=== PATIENT | male | born 1975 | race Caucasian/White ===

== ENCOUNTER 2017-05-22 03:49 | Inpatient (IN) | payer BC ==
[~2017-05-22] VITALS: Ht 188 cm; Wt 128.0 kg
[2017-05-22] VITALS (23 sets, daily range): BP systolic 125–162; BP diastolic 61–107; PULSE 63–94; RESP 12–20; TEMP 98.3; Ht 188 cm; Wt 128.0 kg
[2017-05-22] MEDS ORDERED: morphine 4 MG/ML VIAL IV STA (04:18)
[2017-05-22] MEDS ORDERED: ONDANSETRON 4 MG INJ IV STA (04:18)
[2017-05-22] MEDS ORDERED: SOD CHLORIDE 0.9% 500 ML IV STA (04:18)
[2017-05-22 04:49] LABS: BASOPHIL # 0.1 10^3/ul (0.0-0.1); BASOPHILS % 0.5 % (0.0-2.0); EOSINOPHILS # 0.2 10^3/ul (0.0-0.5); HEMATOCRIT 47.8 % (42.0-52.0); HEMOGLOBIN 15.3 g/dl (14.0-18.0); LYMPHOCYTES # 3.1 10^3/ul (0.8-2.9); LYMPHOCYTES % 33.8 % (15.0-51.0); MEAN CORPUSCULAR VOLUME 90.5 fl (82.0-101.0); MEAN PLATELET VOLUME 10.8 fl (7.4-10.4); MONOCYTE # 0.8 10^3/ul (0.3-0.9); MONOCYTES % 8.7 % (0.0-11.0); NEUTROPHILS % 54.9 % (39.0-77.0); PLATELET COUNT 208 10^3/UL (140-415); RED BLOOD COUNT 5.28 10^6/ul (4.70-6.10); RED CELL DISTRIBUTION WIDTH 14.2 % (11.5-14.5); WHITE BLOOD COUNT 9.1 10^3/ul (4.8-10.8)
[2017-05-22 05:23] LABS: ALBUMIN 4.5 g/dl (3.3-4.9); ALBUMIN/GLOBULIN RATIO 1.36; BILIRUBIN,INDIRECT 0.6 mg/dl (0-1.1); BILIRUBIN,TOTAL 0.6 mg/dl (0.2-1.3); CALCIUM 9.1 mg/dl (8.4-10.2); CREATININE 0.82 mg/dl (0.61-1.24); POTASSIUM 4.1 mmol/L (3.5-5.1); TOTAL PROTEIN 7.8 g/dl (6.1-8.1)
--- NOTE | 2017-05-22 06:27 | ERA ---
ER Documentation Chief Complaint Date/Time DATE: 05/22/17 TIME: 06:25 Chief Complaint c/o RLQ pain x 2 days. Left AMA from [facility]. Dx'd with cristofer. HPI Patient is a 41-year-old male who presents with gradual onset, constant, moderate, sharp right lower quadrant pain for 24 hours. He denies vomiting, but reports nausea. He denies hematuria or dysuria, denies fever. He went to [facility] and had a CT scan which was consistent with appendicitis. [facility] advised to transfer, but the patient did not like the transfer accepting facility and signed out AMA. ROS All systems reviewed and are negative except as per history of present illness. Medications Home Meds No Active Prescriptions or Reported Meds Allergies Allergies: Coded Allergies: No Known Allergy (Unverified , 05/22/17) PMhx/Soc Past medical history: None Past surgical history: None Social history: Smokes cigarettes, denies alcohol FmHx Family History: No coronary disease, No diabetes Physical Exam Vitals Vital Signs Date Time Temp Pulse Resp B/P Pulse Ox O2 Delivery O2 Flow Rate FiO2 05/22/17 07:00 98.6 69 20 131/85 98 05/22/17 03:53 98.8 78 18 120/82 98 Physical Exam Const: Alert, no acute distress Head: Atraumatic Eyes: Normal Conjunctiva, No pallor, no icterus ENT: Normal External Ears, Nose and Mouth. Tacky mucous membranes Neck: Full range of motion..~ No meningismus. Resp: Clear to auscultation bilaterally, No wheezes, no rales Cardio: Regular rate and rhythm, no murmurs Abd: Soft, non distended. Tenderness in the right lower quadrant with involuntary guarding, positive Rovsing sign Skin: No petechiae or rashes Back: No midline or flank tenderness Ext: No cyanosis, or edema Neur: Awake and alert Psych: Normal Mood and Affect Result Diagram: 05/22/1741905/22/17419 Results 24 hrs Laboratory Tests Test 05/22/17 04:20 White Blood Count 9.110^3/ul Red Blood Count 5.2810^6/ul Hemoglobin 15.3g/dl Hematocrit 47.8% Mean Corpuscular Volume 90.5fl Mean Corpuscular Hemoglobin 29.0pg Mean Corpuscular Hemoglobin Concent 32.0g/dl Red Cell Distribution Width 14.2% Platelet Count 19307^3/UL Mean Platelet Volume 10.8fl Neutrophils % 54.9% Lymphocytes % 33.8% Monocytes % 8.7% Eosinophils % 2.0% Basophils % 0.5% Nucleated Red Blood Cells % 0.0/100WBC Neutrophils # 5.010^3/ul Lymphocytes # 3.110^3/ul Monocytes # 0.810^3/ul Eosinophils # 0.210^3/ul Basophils # 0.110^3/ul Nucleated Red Blood Cells # 0.010^3/ul Prothrombin Time 12.8Sec Prothrombin Time Ratio 1.0 INR International Normalized Ratio 0.96 Sodium Level 142mmol/L Potassium Level 4.1mmol/L Chloride Level 108mmol/L Carbon Dioxide Level 23mmol/L Anion Gap 15 Blood Urea Nitrogen 13mg/dl Creatinine 0.82mg/dl Glucose Level 89mg/dl Calcium Level 9.1mg/dl Total Bilirubin 0.6mg/dl Direct Bilirubin 0.00mg/dl Indirect Bilirubin 0.6mg/dl Aspartate Amino Transf (AST/SGOT) 31IU/L Alanine Aminotransferase (ALT/SGPT) 42IU/L Alkaline Phosphatase 49IU/L Total Protein 7.8g/dl Albumin 4.5g/dl Globulin 3.30g/dl Albumin/Globulin Ratio 1.36 Lipase 65U/L Current Medications Medications (Trade) Dose Ordered Sig/Iza Route PRN Reason Start Time Stop Time Status Last Admin Dose Admin Sodium Chloride (NS) 500 ml @ 500 mls/hr Q1H STAT IV 05/22/17 04:18 05/22/17 05:17 DC 05/22/17 04:28 Morphine Sulfate (morphine) 4 mg ONCE STAT IV 05/22/17 04:18 05/22/17 04:19 DC Ondansetron HCl 4 mg 4 mg ONCE STAT IV 05/22/17 04:18 05/22/17 04:19 DC Sodium Chloride (NS) 500 ml @ 500 mls/hr Q1H ONCE IV 05/22/17 06:30 05/22/17 07:29 DC 05/22/17 07:08 Metoclopramide HCl (Reglan) 10 mg ONCE ONCE IV 05/22/17 07:00 05/22/17 07:01 DC 05/22/17 07:08 Procedures/MDM MDM: Patient is a 41-year-old male who presents with 24 hours of right lower quadrant pain. He was seen at [facility] and had a CT scan demonstrating acute appendicitis. There is no sign of perforation. He was given a dose of antibiotics at [facility], but signed out AMA in order to come to [facility]. I confirmed the CT findings by obtaining radiologist report. I discussed with the case with the surgeon on-call, Dr. Choi, who will see the patient and schedule him for appendectomy later today. The patient will be admitted to Dr. Flores. He has no comorbidities, has stable vital signs, and is well-appearing. He does have signs of localized guarding on his abdominal exam but no gross peritonitis, no fever, no leukocytosis. Departure Diagnosis: Primary Impression: Appendicitis Qualified Code: K35.3 - Acute appendicitis with localized peritonitis Condition: Stable ROWENA VASQUEZ MD May 22, 2017 06:27
[2017-05-22] MEDS ORDERED: SOD CHLORIDE 0.9% 500 ML IV ONE (06:30)
[2017-05-22 06:52] LABS: INR 0.96; PROTIME 12.8 Sec (12.2-14.2)
[2017-05-22] MEDS ORDERED: METOCLOPRAMIDE 10 MG INJ IV ONE (07:00)
[2017-05-22] MEDS ORDERED: ROCURONIUM 50 MG INJ ONE (07:00)
[2017-05-22] MEDS ORDERED: ONDANSETRON 4 MG INJ IV PRN ×3 (08:00→19:00)
[2017-05-22] MEDS ORDERED: ACETAMINOPHEN 325 MG TAB PO PRN ×2 (08:00→19:00)
[2017-05-22] MEDS: D5W-0.45 NACL + KCL 20 MEQ 1,000 ML IV SCH ×2 (12:00→23:17)
--- NOTE | 2017-05-22 12:04 | HP ---
Date/Time of Note Date/Time of Note DATE: 05/22/17 TIME: 11:55 Assessment/Plan VTE Prophylaxis VTE Prophylaxis Intervention: SCD's Lines/Catheters IV Catheter Type (from Rust): Saline Lock Urinary Cath still in place: No Assessment/Plan Assessment/Plan - Acute appendicitis, Dr. Medrano is following in general surgery consultation, and for laparoscopic appendectomy today. Continue antibiotics and IV fluids and morphine as needed for pain and Zofran as needed for nausea. Keep patient n.p.o. -Obesity with BMI 36.2 -Ongoing tobacco use, patient refused nicotine patch. Further recommendations based on clinical course. Plan of care discussed with Dr. Flores HPI/ROS Admit Date/Time Admit Date/Time May 22, 2017 at 07:55 Hx of Present Illness The patient is a 41-year-old male who presented to emergency room with complaints of gradual onset and sharp right lower quadrant pain for the last 2 days. Patient originally went to [facility] and underwent CT of the abdomen which revealed acute nonruptured appendicitis with dilated, fluid- filled and edematous appendix. According to the patient the patient received antibiotics and pain medication in the emergency room and patient was about to be transferred to [facility] in [place]. The patient refused to be transferred to [place] due to location far away from home and left [facility] AGAINST MEDICAL ADVICE and presented to [facility] emergency room. Patient denies having any chronic medical conditions, does not take any medications at home. Patient denies any fever chills denies any emesis however complains of mild nausea. Patient is admitted for further evaluation and management. ROS 12 point review of system is negative except what mentioned in HPI PMH/Family/Social Past Medical History Patient denies having any chronic conditions Past Surgical History Past Surgical Hx: no surgical history Family History Significant Family History: no pertinent family hx Social History Alcohol Use: none Smoking Status: Current every day smoker (1 approximately one half pack a day) Drug Use: none Exam/Review of Systems Vital Signs Vitals Vital Signs Date Time Temp Pulse Resp B/P Pulse Ox O2 Delivery O2 Flow Rate FiO2 05/22/17 09:00 98.3 72 18 136/82 98 Room Air Exam Constitutional: alert, oriented Head: normocephalic Neck: supple Respiratory: clear to auscultation Cardiovascular: nl pulses Gastrointestinal: soft, tender (Epigastric and right lower quadrant tenderness) Extremities: normal pulses Neurological: PIPELINE SUPERINTENDENT DIVISION II-XII intact Skin: nl turgor Labs Result Diagram: 05/22/1741905/22/17 042 Medications Medications Current Medications Influenza Virus Vaccine (Fluzone) 0.5 ml ONCE ONCE IM* ; Start 05/22/17 at 15: 00; Stop 05/22/17 at 15:01 THUY HALEY May 22, 2017 12:04
[2017-05-22] MEDS ORDERED: INFLUENZA VIRUS VACCINE 0.5 ML SYG IM* ONE (15:00)
--- NOTE | 2017-05-22 15:44 | RADRPT ---
PROCEDURE: XR Chest. CLINICAL INDICATION: Preop. Acute appendicitis. TECHNIQUE: Single AP portable chest. COMPARISON: No prior Chest x-ray FINDINGS: The cardiomediastinal silhouette is within normal limits of size. The lungs are clear without pleur al effusion or focal consolidation. No pneumothorax. The osseous structures and soft tissues are unr emarkable. IMPRESSION: 1. No evidence for active cardiopulmonary disease. RPTAT:AAJJ Physician Erica Date Time Electronically viewed and signed by Physician Erica on 05/22/2017 15:44 ALIDA/
[2017-05-22] MEDS ORDERED: LIDOCAINE 2%/EPI 30 ML INJ ONE (18:00)
[2017-05-22] MEDS: PIPER-TAZO 3.375 GM IV (PMX) 100 ML IVPB SCH (18:00)
[2017-05-22] MEDS ORDERED: BUPIVACAINE 0.25% (MPF) 30 ML INJ ONE (18:00)
[2017-05-22] MEDS ORDERED: LIDOCAINE 2% (SDV) 5 ML INJ ONE (18:24)
[2017-05-22] MEDS ORDERED: PROPOFOL 20 ML ONE (18:24)
[2017-05-22] MEDS ORDERED: SUCCINYLCHOLINE CHLORIDE 100 MG/5 ML SYG IV ONE (18:24)
[2017-05-22] MEDS ORDERED: MIDAZOLAM 1 MG/ML 2 ML INJ ONE (18:24)
[2017-05-22] MEDS ORDERED: FENTAnyl 50 MCG/ML VIAL ONE (18:24)
[2017-05-22] MEDS ORDERED: hydrALAzine 20 MG INJ IV PRN (18:30)
[2017-05-22] MEDS ORDERED: PROCHLORPERAZINE 10 MG INJ IV PRN (18:30)
[2017-05-22] MEDS ORDERED: DIPHENHYDRAMINE 50 MG INJ IV PRN (18:30)
[2017-05-22] MEDS ORDERED: FENTAnyl 50 MCG/ML VIAL IV PRN (18:30)
[2017-05-22] MEDS ORDERED: OXYCODONE/ACETAMINOPHEN (5/325) TAB PO PRN ×2 (18:30)
[2017-05-22] MEDS ORDERED: LABETALOL HCL 20MG INJ IV PRN (18:30)
[2017-05-22] MEDS ORDERED: MEPERIDINE 25 MG INJ IV PRN (18:30)
[2017-05-22] MEDS ORDERED: HYDROmorphONE (0.2 MG/ML) 10ML SYG IV PRN ×2 (18:30)
[2017-05-22] MEDS ORDERED: D5-NS + KCL 20 MEQ 1,000 ML IV SCH (18:36)
--- NOTE | 2017-05-22 18:36 | CONS ---
Date/Time of Note Date/Time of Note DATE: 05/22/17 TIME: 18:34 Assessment/Plan Assessment/Plan Additional Assessment/Plan Acute appendicitis Discussed laparoscopic, possible open, appendectomy. All benefits, risks, alternatives discussed in detail. All questions answered. The patient likes to proceed Consultation Date/Type/Reason Admit Date/Time May 22, 2017 at 07:55 Date of Consultation: May 22, 2017 Hx of Present Illness The patient is a 41-year-old male who developed acute onset of abdominal pain to the right lower quadrant. He presented to [facility] where he was diagnosed with acute appendicitis. Due to insurance reasons he was transferred here. Patient has nausea but no emesis. He denies fevers chills or night sweats Past Medical History Medical History: no pertinent history Past Surgical History Past Surgical Hx: no surgical history Family History Significant Family History: no pertinent family hx Social History Alcohol Use: none Smoking Status: Current every day smoker (1 approximately one half pack a day) Drug Use: none Exam/Review of Systems Vital Signs Vitals Vital Signs Date Time Temp Pulse Resp B/P Pulse Ox O2 Delivery O2 Flow Rate FiO2 05/22/17 16:05 98.7 63 16 125/71 97 Room Air Exam Constitutional: alert, oriented, well developed Respiratory: clear to auscultation Cardiovascular: regular rate and rhythm Gastrointestinal: soft, tender (To right lower quadrant) Musculoskeletal: nl extremities to inspection Extremities: normal pulses Results Result Diagram: 05/22/17 0420 05/22/17 0420 Results 24 hrs Laboratory Tests Test 05/22/17 04:20 White Blood Count 9.1 Red Blood Count 5.28 Hemoglobin 15.3 Hematocrit 47.8 Mean Corpuscular Volume 90.5 Mean Corpuscular Hemoglobin 29.0 Mean Corpuscular Hemoglobin Concent 32.0 Red Cell Distribution Width 14.2 Platelet Count 208 Mean Platelet Volume 10.8 H Neutrophils % 54.9 Lymphocytes % 33.8 Monocytes % 8.7 Eosinophils % 2.0 Basophils % 0.5 Nucleated Red Blood Cells % 0.0 Neutrophils # 5.0 Lymphocytes # 3.1 H Monocytes # 0.8 Eosinophils # 0.2 Basophils # 0.1 Nucleated Red Blood Cells # 0.0 Prothrombin Time 12.8 Prothrombin Time Ratio 1.0 INR International Normalized Ratio 0.96 Sodium Level 142 Potassium Level 4.1 Chloride Level 108 Carbon Dioxide Level 23 Anion Gap 15 Blood Urea Nitrogen 13 Creatinine 0.82 Glucose Level 89 Calcium Level 9.1 Total Bilirubin 0.6 Direct Bilirubin 0.00 Indirect Bilirubin 0.6 Aspartate Amino Transf (AST/SGOT) 31 Alanine Aminotransferase (ALT/SGPT) 42 Alkaline Phosphatase 49 Total Protein 7.8 Albumin 4.5 Globulin 3.30 H Albumin/Globulin Ratio 1.36 Lipase 65 Medications Medications Current Medications Piperacillin Sod/ Tazobactam Sod 100 ml @ 25 mls/hr TID@ IVPB ; Start 05/22/17 at 18:00 Potassium Chloride/Dextrose/ Sod Cl (D5-1/2ns + KCl 20 Meq) 1,000 ml @ 100 mls/ hr Q10H IV Last administered on 05/22/17t 12:00; Admin Dose 100 MLS/HR; Start 05/22/17 at 12:00 MANSOOR TANG MD May 22, 2017 18:36
[2017-05-22] MEDS ORDERED: ONDANSETRON 4 MG INJ ONE (18:55)
[2017-05-22] MEDS ORDERED: METOCLOPRAMIDE 10 MG INJ ONE (18:55)
[2017-05-22] MEDS ORDERED: SUGAMMADEX SODIUM 200 MG/2 ML VIAL IV ONE (18:57)
[2017-05-22] MEDS ORDERED: HYDROCODONE/APAP (5/325) TAB PO PRN (19:00)
[2017-05-22] MEDS ORDERED: morphine 2 MG INJ IV PRN (19:00)
[2017-05-22] MEDS ORDERED: HYDROmorphONE 2 MG/ML SYG ONE (19:06)
--- NOTE | 2017-05-22 19:17 | SIPON ---
Date/Time of Note Date/Time of Note DATE: 05/22/17 TIME: 19:16 Operative Report Preoperative Diagnosis acute appendicitis Postoperative Diagnosis same Operation/Procedure Performed Lap appey Surgeon see signature line evaluation assistant none Anesthesia: general Estimated blood loss: 10 - 50 ml's Transfusion Required none Specimen appendix Grafts/Implants none Complications none MANSOOR TANG MD May 22, 2017 19:17
--- NOTE | 2017-05-22 19:24 | OPR ---
Date/Time of Note Date/Time of Note DATE: 05/22/17 TIME: 19:20 Operative Report Procedure Date: May 22, 2017 Preoperative Diagnosis Acute appendicitis Postoperative Diagnosis Same Operation/Procedure Performed Laparoscopic appendectomy Surgeon see signature line Big Machine Consultant None Anesthesia Type: general Anesthesiologist: FRIDA DURHAM MD Estimated Blood Loss: 10 - 50 ml's Transfusion none Specimen Appendix Grafts/Implants none Complications none Indications Patient is a 41 year male with acute appendicitis. I discussed laparoscopic, possible open appendectomy with the patient. All benefits, risks, alternatives discussed in detail. All questions answered. The patient asked to proceed thank you Procedure Description The patient was brought to operative room placed supine on the table. After preop antibiotics and SCDs were applied. The patient was intubated and the abdomen was cleaned prepped draped sterile fashion. All incisions were infiltrated with half percent Marcaine. A 5 mm incision was made in the umbilicus. Using a 5 relapse continued trocar, the abdomen under direct vision insufflated him as marked CO2. Following trochars and placed direct vision: The right lower quadrant 5 mm iand a left lower quadrant 12mm. There was some serosanguineous fluid in the abdomen. Emanating form the cecum was the appendix. It was not really consistent with acute appendicitis. It was not ruptured or perforated. I made a rent in the base of the appendiceal mesentery I then divided the cecum at the base of the appendix with a 35 mm and the linear cutter white load. I then was able to elevate the appendix. The mesentery was then divided with a 35 mm Endo linear cutter white load. The appendix was then placed in Endo Catch bag and removed from the 12 mm trocar site. I then copiously irrigated the right upper quadrant right lower quadrant and pelvis to left was clear. I visualized my staple lines are hemostatic. I then visualized the pelvis. In the right side of the pelvis there was a ischemic cyst which was emanating from the right fallopian tube. The uterus and both ovaries were normal. I called the labor wrist nitric acid concentrator operator into the OR. She told me this was a necrotic right paratubal cyst and the tube needed to be resected. I was able to place a 35 mm Endo linear cutter white load across the right salpinx. The salpinx and cyst were thus divided. I placed the cyst and salpinx in Endo Catch bag. I visualized my staple line was hemostatic. I then remove the cyst and right salpinx from the 12 mm trocar site. At this point, I desufflated the abdomen and removed all trochars. The fascia of the 12 mm trocar site was closed with 0 Vicryl. Skin incisions were closed with 4 Monocryl, Mastisol, and Steri-Strips. The patient procedure well was extubated in the OR and transferred to recovery in stable condition. MANSOOR TANG MD May 22, 2017 19:24
[2017-05-22] MEDS: ACETAMINOPHEN 1000MG/100ML IV 100 ML IVPB PRN (23:17)
[2017-05-23] MEDS ORDERED: PIPER-TAZO 3.375 GM IV (PMX) 100 ML IVPB SCH
[2017-05-23 00:01] VITALS: BP 128/63; PULSE 61; RESP 17
[2017-05-23] MEDS: PIPER-TAZO 3.375 GM IV (PMX) 100 ML IVPB SCH ×3 (03:08→17:28)
[2017-05-23] MEDS: KETOROLAC 30 MG INJ IV PRN ×3 (03:31→20:45)
[2017-05-23 05:22] LABS: BASOPHILS % 0.3 % (0.0-2.0); EOSINOPHILS # 0.1 10^3/ul (0.0-0.5); EOSINOPHILS % 1.4 % (0.0-7.0); HEMATOCRIT 44.5 % (42.0-52.0); HEMOGLOBIN 14.4 g/dl (14.0-18.0); LYMPHOCYTES # 2.1 10^3/ul (0.8-2.9); LYMPHOCYTES % 24.7 % (15.0-51.0); MEAN CORPUSCULAR HEMOGLOBIN 29.6 pg (29.0-33.0); MEAN CORPUSCULAR HGB CONC 32.4 g/dl (32.0-37.0); MEAN CORPUSCULAR VOLUME 91.6 fl (82.0-101.0); MEAN PLATELET VOLUME 10.8 fl (7.4-10.4); MONOCYTE # 0.7 10^3/ul (0.3-0.9); MONOCYTES % 8.3 % (0.0-11.0); NEUTROPHIL # 5.6 10^3/ul (1.6-7.5); NEUTROPHILS % 65.1 % (39.0-77.0); PLATELET COUNT 180 10^3/UL (140-415); RED BLOOD COUNT 4.86 10^6/ul (4.70-6.10); RED CELL DISTRIBUTION WIDTH 13.9 % (11.5-14.5); WHITE BLOOD COUNT 8.7 10^3/ul (4.8-10.8)
[2017-05-23 06:12] LABS: CALCIUM 8.6 mg/dl (8.4-10.2); CREATININE 0.91 mg/dl (0.61-1.24)
[2017-05-23] MEDS: ENOXAPARIN 40 MG/0.4 ML SYG SC SCH (06:32)
[2017-05-23 07:16] VITALS: BP 123/77; RESP 19
[2017-05-23] MEDS: D5W-0.45 NACL + KCL 20 MEQ 1,000 ML IV SCH (08:00)
[2017-05-23] MEDS: ACETAMINOPHEN 1000MG/100ML IV 100 ML IVPB PRN (09:00)
[2017-05-23 14:20] VITALS: BP 126/77; RESP 18
[2017-05-23] MEDS: PANTOPRAZOLE (EC) 40 MG TAB PO SCH (16:59)
[2017-05-23] MEDS ORDERED: SENNA TAB PO PRN (17:30)
[2017-05-23 19:50] VITALS: BP 128/73; RESP 18
--- NOTE | 2017-05-23 19:54 | PN ---
Date/Time of Note Date/Time of Note DATE: 05/23/17 TIME: 19:53 Assessment/Plan Lines/Catheters IV Catheter Type (from Nrs): Peripheral IV Mcnair in Place (from Nrs): No Assessment/Plan Chief Complaint/Hosp Course Postop day 1 status post lap appendectomy Okay for discharge tomorrow Problems: Subjective 24 Hr Interval Summary Constitutional: other (Some pain to left lower quadrant, had bowel movement and passing flatus) Exam/Review of Systems Vital Signs Vitals Vital Signs Date Time Temp Pulse Resp B/P Pulse Ox O2 Delivery O2 Flow Rate FiO2 05/23/17 14:20 97.8 69 18 126/77 96 05/23/17 00:01 Room Air 05/22/17 22:15 2.0 Intake and Output 05/22/17 05/22/17 05/23/17 15:00 23:00 07:00 Intake Total 650 ml 2470 ml Output Total 25 ml 1400 ml Balance 625 ml 1070 ml Exam Constitutional: alert, oriented, well developed Respiratory: clear to auscultation Cardiovascular: regular rate and rhythm Gastrointestinal: soft Results Result Diagram: 05/23/17 0438 05/23/17 0438 MANSOOR TANG MD May 23, 2017 19:54
--- NOTE | 2017-05-23 22:42 | PN ---
Date/Time of Note Date/Time of Note DATE: 05/23/17 TIME: 22:41 Assessment/Plan Lines/Catheters IV Catheter Type (from Nrs): Saline Lock Urinary Cath still in place: No Assessment/Plan Assessment/Plan - Acute appendicitis, Dr. Medrano is following in general surgery consultation, and for laparoscopic appendectomy today. Continue antibiotics and IV fluids and morphine as needed for pain and Zofran as needed for nausea. Keep patient n.p.o. -Obesity with BMI 36.2 -Ongoing tobacco use, patient refused nicotine patch. Further recommendations based on clinical course. Plan of care discussed with Dr. Flores Exam/Review of Systems Vital Signs Vitals Vital Signs Date Time Temp Pulse Resp B/P Pulse Ox O2 Delivery O2 Flow Rate FiO2 05/23/17 19:50 99.0 72 18 128/73 96 05/23/17 00:01 Room Air 05/22/17 22:15 2.0 Intake and Output 05/22/17 05/22/17 05/23/17 15:00 23:00 07:00 Intake Total 650 ml 2470 ml Output Total 25 ml 1400 ml Balance 625 ml 1070 ml Results Result Diagram: 05/23/17 0438 05/23/17 0438 Results 24 hrs Laboratory Tests Test 05/23/17 04:38 White Blood Count 8.7 Red Blood Count 4.86 Hemoglobin 14.4 Hematocrit 44.5 Mean Corpuscular Volume 91.6 Mean Corpuscular Hemoglobin 29.6 Mean Corpuscular Hemoglobin Concent 32.4 Red Cell Distribution Width 13.9 Platelet Count 180 Mean Platelet Volume 10.8 H Neutrophils % 65.1 Lymphocytes % 24.7 Monocytes % 8.3 Eosinophils % 1.4 Basophils % 0.3 Nucleated Red Blood Cells % 0.0 Neutrophils # 5.6 Lymphocytes # 2.1 Monocytes # 0.7 Eosinophils # 0.1 Basophils # 0.0 Nucleated Red Blood Cells # 0.0 Sodium Level 142 Potassium Level 4.0 Chloride Level 106 Carbon Dioxide Level 27 Anion Gap 13 Blood Urea Nitrogen 8 Creatinine 0.91 Glucose Level 95 Calcium Level 8.6 Medications Medications Current Medications Piperacillin Sod/ Tazobactam Sod (Zosyn 3.375gm/ 100 ml (Pmx)) 100 ml @ 25 mls/ hr TID@02,,18 IVPB Last administered on 05/23/17t 17:28; Admin Dose 25 MLS/ HR; Start 05/22/17 at 18:00 Ondansetron HCl (Zofran Inj) 4 mg Q6H PRN IV NAUSEA AND/OR VOMITING; Start at 19:00 Acetaminophen (Tylenol Tab) 650 mg Q6H PRN PO PAIN LEVEL 1-3 OR FEVER; Start 05/22/17 at 19:00 Morphine Sulfate (morphine) 2 mg Q2H PRN IV PAIN LEVEL 8-10; Start 05/22/17 at 19:00 Acetaminophen/ Hydrocodone Bitart ([place] (5/325)) 1 tab Q6H PRN PO PAIN LEVEL 4 -7; Start 05/22/17 at 19:00 Enoxaparin Sodium 40 mg 40 mg DAILY@07 SC Last administered on 05/23/17 06:32 ; Admin Dose 40 MG; Start 05/23/17 at 07:00 Acetaminophen (Ofirmev 1000mg/ 100ml Iv) 100 ml @ 400 mls/hr Q8H PRN IVPB PAIN Last administered on 05/23/17 09:00; Admin Dose 400 MLS/HR; Start at 22:00 Ketorolac Tromethamine (Toradol) 30 mg Q6H PRN IV PAIN Last administered on 20:45; Admin Dose 30 MG; Start 05/22/17 at 22:00; Stop 05/25/17 at 21: 59 Pantoprazole (Protonix Tab) 40 mg DAILY@06 PO Last administered on 05/23/17 16:59; Admin Dose 40 MG; Start 05/23/17 at 17:00 Ibuprofen (Motrin) 600 mg Q6H PRN PO PAIN; Start 05/25/17 at 22:00 Senna (Senokot) 2 tab BID PRN PO CONSTIPATION Last administered on 05/23/17 17:28; Admin Dose 2 TAB; Start 05/23/17 at 17:30 ELDA ELLIS May 23, 2017 22:42
[2017-05-24] MEDS: ACETAMINOPHEN 1000MG/100ML IV 100 ML IVPB PRN (00:17)
[2017-05-24] MEDS: PIPER-TAZO 3.375 GM IV (PMX) 100 ML IVPB SCH ×3 (01:26→18:00)
[2017-05-24] MEDS: KETOROLAC 30 MG INJ IV PRN ×4 (02:37→19:42)
[2017-05-24] MEDS: PANTOPRAZOLE (EC) 40 MG TAB PO SCH (06:16)
[2017-05-24] MEDS: ENOXAPARIN 40 MG/0.4 ML SYG SC SCH (06:21)
[2017-05-24 08:09] VITALS: BP 115/66; RESP 18
--- NOTE | 2017-05-24 13:36 | OPR ---
Date/Time of Note Date/Time of Note DATE: 05/24/17 TIME: 13:34 Operative Report Procedure Date: May 22, 2017 Preoperative Diagnosis acute appendicitis Postoperative Diagnosis Same Operation/Procedure Performed Laparoscopic appendectomy Surgeon see signature line Web Marketing Strategist none Anesthesia Type: general Anesthesiologist: FRIDA DURHAM MD Estimated Blood Loss: minimal Transfusion none Specimen appendix Grafts/Implants none Complications none Pt Condition Post Procedure: stable Disposition: PACU Indications Patient is a 41 year male with acute appendicitis. I discussed laparoscopic, possible open appendectomy with the patient. All benefits, risks, alternatives discussed in detail. All questions answered. The patient asked to proceed thank you Procedure Description The patient was brought to operative room placed supine on the table. After preop antibiotics and SCDs were applied. The patient was intubated and the abdomen was cleaned prepped draped sterile fashion. All incisions were infiltrated with half percent Marcaine. A 5 mm incision was made in the umbilicus. Using a 5 relapse continued trocar, the abdomen under direct vision insufflated him as marked CO2. Following trochars and placed direct vision: The right lower quadrant 5 mm iand a left lower quadrant 12mm. There was some serosanguineous fluid in the abdomen. Emanating form the cecum was the appendix. It was not really consistent with acute appendicitis. It was not ruptured or perforated. I made a rent in the base of the appendiceal mesentery I then divided the cecum at the base of the appendix with a 35 mm and the linear cutter white load. I then was able to elevate the appendix. The mesentery was then divided with a 35 mm Endo linear cutter white load. The appendix was then placed in Endo Catch bag and removed from the 12 mm trocar site. I then copiously irrigated the right upper quadrant right lower quadrant and pelvis until effluent was clear. I visualized my staple lines. They were hemostatic. At this point, I desufflated the abdomen and removed all trochars. The fascia of the 12 mm trocar site was closed with 0 Vicryl. Skin incisions were closed with 4 Monocryl, Mastisol, and Steri-Strips. The patient procedure well was extubated in the OR and transferred to recovery in stable condition. MANSOOR TANG MD May 24, 2017 13:36
[2017-05-24 14:00] VITALS: BP 122/74; RESP 18
[2017-05-24] MEDS ORDERED: ACET1TAB40 PO (18:01)
[2017-05-25] MEDS ORDERED: IBUPROFEN 600 MG TAB PO PRN (22:00)
--- NOTE | 2017-05-26 16:23 | DS ---
Date/Time of Note Date/Time of Note DATE: 05/26/17 TIME: 16:20 Discharge Summary Admission/Discharge Info Admit Date/Time May 22, 2017 at 07:55 Discharge Date/Time May 24, 2017 at 19:55 Patient Condition: Stable Hx of Present Illness The patient is a 41-year-old male who presented to emergency room with complaints of gradual onset and sharp right lower quadrant pain for the last 2 days. Patient originally went to [facility] and underwent CT of the abdomen which revealed acute nonruptured appendicitis with dilated, fluid- filled and edematous appendix. According to the patient the patient received antibiotics and pain medication in the emergency room and patient was about to be transferred to [facility] in [place]. The patient refused to be transferred to [place] due to location far away from home and left [facility] AGAINST MEDICAL ADVICE and presented to [facility] emergency room. Patient denies having any chronic medical conditions, does not take any medications at home. Patient denies any fever chills denies any emesis however complains of mild nausea. Patient is admitted for further evaluation and management. Hospital Course - Acute appendicitis,status post lap appendectomy 05/[address] Medrano. Continue antibiotics and IV fluids and morphine as needed for pain and Zofran as needed for nausea. Pt recovered well, able to tolerate diet, +BS, + flatus, ambulatory. -Obesity with BMI 36.2 -Ongoing tobacco use, patient refused nicotine patch. Cessation is strongly advised. Home Meds Active Scripts Acetaminophen with Codeine (Acetaminophen-Cod #3 Tablet) 1 Each Tablet, 1 TAB PO Q6H, #30 TAB Prov:THUY HALEY 05/24/17 Follow-up Plan f/up with Dr Choi in 1-2 weeks. Primary Care Provider Not On Staff Doctor Time spent on discharge: > 30 minutes Pending Labs Laboratory Tests Test 05/26/17 12:03 Lab Scanned Report REFERENCE [id number] THUY HALEY May 26, 2017 16:23
== END 2017-05-24 19:55 | disposition home or self-care (01) | DRG 340 ==
LOC: E/R 03:49 → MS3 07:55 → MS1 10:49
PROVIDERS: ADMIT Internal Medicine; ATTEND Internal Medicine
PROC: 0DTJ4ZZ Resection of Appendix, Percutaneous Endoscopic Approach (ICD-10-PCS; principal; 2017-05-22 18:00)
DX: K35.3 Acute appendicitis with localized peritonitis (principal); E66.9 Obesity, unspecified; Z68.36 Body mass index [BMI] 36.0-36.9, adult; Z72.0 Tobacco use
CPT/HCPCS: 71010; 80048; 80053; 83690; 85025; 85610; 88304; 90686; 96374; J0131; J1170; J1650; J1885; J2175; J2250; J2270; J2405; J2543; J2765; J3010; J3480; J7040

== ENCOUNTER 2017-06-30 19:23 | Emergency (ER) | payer BC ==
[~2017-06-30] VITALS: Ht 182.9 cm; Wt 122.7 kg
[~2017-06-30 19:23] MED LIST: ACET1TAB40 PO
[2017-06-30 19:32] VITALS: Ht 182.9 cm; Wt 122.7 kg
[2017-06-30] MEDS ORDERED: morphine 4 MG/ML VIAL IV STA (19:45)
[2017-06-30] MEDS ORDERED: LIDOCAINE/MYLANTA 40 ML BTL PO STA (19:45)
[2017-06-30] MEDS ORDERED: ONDANSETRON 4 MG INJ IV STA (19:45)
--- NOTE | 2017-06-30 19:52 | ERD ---
ER Documentation Chief Complaint Chief Complaint RUQ abd pain since 4 hours ago HPI This 41-year-old male patient presents to emergency department for evaluation right upper quadrant pain. Right, radiating across abdomen to epigastrium, 2 back. Patient reports nausea without vomiting. Patient also has had his appendix removed 4 weeks ago. Patient reports today's pain is greater than 10/ 10 on pain scale. Patient denies chest pain, shortness of breath, palpitations , or dizziness. Pt reports of gradual onset and sharp right lower quadrant pain with similar symptoms early last month. Patient was seen at [facility] had CT of the abdomen which revealed acute nonruptured appendicitis with dilated, fluid-filled and edematous appendix. Patient ended up at [facility] for appendectomy. ROS All systems reviewed and are negative except as per history of present illness. Medications Home Meds Active Scripts Acetaminophen with Codeine (Acetaminophen-Cod #3 Tablet) 1 Each Tablet, 1 TAB PO Q6H, #30 TAB Prov:THUY HALEY 05/24/17 Allergies Allergies: Coded Allergies: No Known Allergy (Unverified , 05/22/17) PMhx/Soc History of Surgery: No Anesthesia Reaction: No Hx Neurological Disorder: No Hx Respiratory Disorders: No Hx Cardiac Disorders: No Hx Psychiatric Problems: No Hx Miscellaneous Medical Probl: No Hx Alcohol Use: Yes (OOC) Hx Substance Use: No Hx Tobacco Use: Yes Smoking Status: Current every day smoker Physical Exam Vitals Vital Signs Date Time Temp Pulse Resp B/P Pulse Ox O2 Delivery O2 Flow Rate FiO2 06/30/17 21:30 98.0 89 20 144/85 98 Room Air 06/30/17 19:32 98.3 82 20 135/85 100 Vitals stable, triage notes reviewed Physical Exam Const: This obese, well-appearing, well-hydrated, 41-year-old male patient obvious discomfort, no acute distress ENT: Normal External Ears, Nose and Mouth. Resp: Respirations even and unlabored, clear to auscultation bilaterally diminished bases Cardio: S1-S2, no S3-S4 regular rate and rhythm, no murmurs Abd: Abdomen obese, soft, epigastric tenderness, right upper quadrant tenderness, no lower quadrant tenderness or CVA tenderness. Neur: Awake and alert Psych: Normal Mood and Affect Result Diagram: 06/30/17194706/30/171947 Results 24 hrs Laboratory Tests Test 06/30/17 19:45 06/30/17 19:48 Urine Color LIZZ Urine Clarity CLOUDY Urine pH 5.0 Urine Specific [place] 1.031 Urine Ketones TRACEmg/dL Urine Nitrite NEGATIVEmg/dL Urine Bilirubin NEGATIVEmg/dL Urine Urobilinogen 2+mg/dL Urine Leukocyte Esterase NEGATIVELeu/ul Urine Microscopic RBC 0/HPF Urine Microscopic WBC 4/HPF Urine Squamous Epithelial Cells FEW/HPF Urine Calcium Oxalate Crystals MANY/HPF Urine Mucus MANY/HPF Urine Hemoglobin NEGATIVEmg/dL Urine Glucose NEGATIVEmg/dL Urine Total Protein 1+mg/dl White Blood Count 9.610^3/ul Red Blood Count 5.6710^6/ul Hemoglobin 16.6g/dl Hematocrit 49.7% Mean Corpuscular Volume 87.7fl Mean Corpuscular Hemoglobin 29.3pg Mean Corpuscular Hemoglobin Concent 33.4g/dl Red Cell Distribution Width 13.3% Platelet Count 02520^3/UL Mean Platelet Volume 10.7fl Neutrophils % 67.1% Lymphocytes % 24.0% Monocytes % 6.6% Eosinophils % 1.6% Basophils % 0.5% Nucleated Red Blood Cells % 0.0/100WBC Neutrophils # 6.410^3/ul Lymphocytes # 2.310^3/ul Monocytes # 0.610^3/ul Eosinophils # 0.210^3/ul Basophils # 0.110^3/ul Nucleated Red Blood Cells # 0.010^3/ul Sodium Level 145mmol/L Potassium Level 4.0mmol/L Chloride Level 107mmol/L Carbon Dioxide Level 27mmol/L Anion Gap 15 Blood Urea Nitrogen 18mg/dl Creatinine 0.98mg/dl Glucose Level 106mg/dl Calcium Level 10.7mg/dl Total Bilirubin 0.5mg/dl Direct Bilirubin 0.00mg/dl Indirect Bilirubin 0.5mg/dl Aspartate Amino Transf (AST/SGOT) 37IU/L Alanine Aminotransferase (ALT/SGPT) 47IU/L Alkaline Phosphatase 53IU/L Troponin I < 0.012ng/ml Total Protein 8.1g/dl Albumin 4.4g/dl Globulin 3.70g/dl Albumin/Globulin Ratio 1.18 Lipase 82U/L Current Medications Medications (Trade) Dose Ordered Sig/Iza Route PRN Reason Start Time Stop Time Status Last Admin Dose Admin Ondansetron HCl (Zofran Inj) 4 mg ONCE STAT IV 06/30/17 19:45 06/30/17 19:49 DC 06/30/17 20:06 Miscellaneous Medication 40 ml 40 ml ONCE STAT PO 06/30/17 19:45 06/30/17 19:49 DC 06/30/17 20:06 Lactated Ringer's (Lr) 500 ml @ 500 mls/hr Q1H ONCE IV 06/30/17 20:00 06/30/17 20:59 DC 06/30/17 20:07 Morphine Sulfate (morphine) 4 mg ONCE STAT IV 06/30/17 19:45 06/30/17 20:18 DC Acetaminophen/ Codeine Phosphate (Tylenol No.3) 1 tab ONCE PO 06/30/17 20:25 06/30/17 20:26 DC 06/30/17 20:34 Ketorolac Tromethamine 15 mg 15 mg ONCE STAT IV 06/30/17 22:13 06/30/17 22:21 DC 06/30/17 22:36 Acetaminophen (Ofirmev 1000mg/ 100ml Iv) 100 ml @ 400 mls/hr ONCE ONCE IVPB 06/30/17 22:30 06/30/17 22:44 DC 06/30/17 22:36 Interpretation text CBC shows no evidence of hemorrhage or infection Chemistry shows no evidence of significant electrolyte abnormalities or renal insufficiency Liver function tests shows no evidence of acute biliary or hepatic dysfunction Lipase shows no evidence of acute pancreatitis Pertinent negative for evidence of recent ischemia Procedures/MDM EKG read by Dr. Dee Rate/Rhythm: Regular rate and rhythm at a rate of 76 bpm Intervals: Normal Impression: No evidence of ischemia or arrhythmia PROCEDURE: XR Abdomen. CLINICAL INDICATION: Abdomen pain. TECHNIQUE: Two views. AP supine and AP erect. COMPARISON: None. FINDINGS: There is no free air. The bowel gas pattern is normal. There is no evidence of obstruction. Surgical clips are present in the right lower quadrant. There are no abnormal calcifications overlying the urinary tracts. The osseus structures are unremarkable. IMPRESSION: 1. Prior right lower quadrant abdomen surgery. 2. Otherwise unremarkable abdomen radiographs. Electronically viewed and signed by .Rafael Wolff MD, on 06/30/2017 21:41 PROCEDURE: Right upper quadrant ultrasound. CLINICAL INDICATION: Abdominal pain. TECHNIQUE: Multiple real-time longitudinal and transverse images of the right upper quadrant of the abdomen were acquired utilizing a curved array transducer. Images were reviewed on a high-resolution PACS workstation. COMPARISON: None. FINDINGS: The pancreas is not visualized due to overlying bowel gas. The liver is normal in echogenicity. The liver measures 18.5 cm in length. No hepatic lesion or intrahepatic biliary ductal dilatation is seen. The portal vein is patent with hepatopetal flow. No gallstones or sludge are seen within the gallbladder lumen. The gallbladder wall is not thickened. There is no pericholecystic fluid. The common bile duct measures 4 mm in diameter, not dilated. The right kidney measures 12.4 cm in length. Renal echogenicity is normal. There is no hydronephrosis, urinary calculus, or renal mass. The visualized portions of the aorta and IVC are unremarkable. IMPRESSION: 1. Normal appearance of the gallbladder and bile ducts. 2. Mild hepatomegaly. 3. The pancreas is not visualized. Electronically viewed and signed by .Alejo Sherman MD, on 06/30/2017 21:28 This 41-year-old male patient presents to emergency room with intermittent abdominal pain, patient reports with the abdominal pain hits it is over 10 out of 10 on pain scale, patient reports pain is active at this time, patient has also recently been hospitalized for appendicitis status post appendectomy. Emergency room course includes her lactated Ringer's, Tylenol 3 with codeine, Toradol 15 mg intramuscularly, and IV Tylenol. Treatment of pain symptoms. The patient's chart review;, patient's last CAT scan from May 21 prior to appendectomy as read by radiologist impression acute nonruptured appendicitis associated with trace pelvic ascites simple appearing left renal cyst diverticulosis of the colon degenerative changes of the spine and of the hips. I do not feel it was necessary to repeat CAT scan today, ordered limited ultrasound in upright flatplate of abdomen. Right upper quadrant ultrasound is read by radiologist impression normal appearance of the gallbladder in the bile ducts, mild hepatomegaly, the pancreas is not visualized. Abdominal x-rays read by radiologist prior right lower quadrant abdominal surgery, abdominal x- ray is read by supervising physician Dr. Dee positive for retained stool in the transverse colon, otherwise unremarkable x-ray, serology is unremarkable for infection, hemorrhage, electrolyte imbalance, hepatitis, pancreatitis, renal insufficiency. Urinalysis is negative for evidence of infection. All information reviewed with Dr. Dee, plan of care discussed, patient to start MiraLAX, Dulcolax suppository, and follow-up with primary care physician. Return to emergency department for pain not improving with treatment. Patient is stable with no new complaints during ER course, clinically there is no current evidence to suggest meningitis, sepsis, acute abdomen, acute coronary syndromes, pulmonary embolism or any other emergent condition appearing to require further evaluation or hospitalization. I feel the patient is stable for discharge at this time. I have discussed results, examination findings, the treatment plan with the patient and family present prior to discharge. Indications for emergent reevaluation, side effects of medication were also discussed. All questions were answered. Patient verbalizes understanding and agrees with plan of care. Departure Diagnosis: Primary Impression: Abdominal pain Abdominal location: right upper quadrant Qualified Code: R10.11 - Right upper quadrant abdominal pain Condition: Good Patient Instructions: Abdominal Pain, Constipation (Adult), Eating a High Fiber Diet Additional Instructions: Thank you for for coming to [facility] for your care today. Please ask your nurse or provider if you have questions about your care today and do not leave until all your questions have been answered. Please use any medications given as directed and follow-up with your doctor (or the doctor you were referred to) in the next 2-3 days. If you do not have a primary care doctor you may follow up at the [facility] [place] (listed below). You may also use motrin and tylenol as needed for fever and/or pain unless instructed otherwise by your provider or nurse. Indications for more urgent follow-up have been discussed, but you may return to the Emergency Department at ANY time for any worrisome or worsening symptoms. If you have abdominal pain, please know that no test or exam you received is perfect and you should follow up within 8 hours for continued pain. If you had any imaging studies today, such as an X-Ray or CT Scan, these studies will be reviewed later by a radiologist. You will be called if there are important findings that were not identified today, so make sure the contact information you provided at registration is correct. If you received any narcotic pain control medicine today, such as Vicodin, Morphine or Dilaudid, your coordination and judgment may be affected for a number of hours. Please do not drive or operate heavy machinery, and you may want someone to assist you at home. If you were given a prescription for narcotic medication, be aware that it is very addictive- use sparingly and only if necessary. ABHAY SHINE Jun 30, 2017 19:52
[2017-06-30] MEDS ORDERED: LACTATED RINGER'S 500 ML IV ONE (20:00)
[2017-06-30] MEDS ORDERED: ACETAMINOPHEN/CODEINE #3 TAB PO SCH (20:25)
[2017-06-30 20:33] LABS: BASOPHIL # 0.1 10^3/ul (0.0-0.1); BASOPHILS % 0.5 % (0.0-2.0); EOSINOPHILS # 0.2 10^3/ul (0.0-0.5); EOSINOPHILS % 1.6 % (0.0-7.0); HEMATOCRIT 49.7 % (42.0-52.0); HEMOGLOBIN 16.6 g/dl (14.0-18.0); LYMPHOCYTES # 2.3 10^3/ul (0.8-2.9); MEAN CORPUSCULAR HEMOGLOBIN 29.3 pg (29.0-33.0); MEAN CORPUSCULAR HGB CONC 33.4 g/dl (32.0-37.0); MEAN CORPUSCULAR VOLUME 87.7 fl (82.0-101.0); MEAN PLATELET VOLUME 10.7 fl (7.4-10.4); MONOCYTE # 0.6 10^3/ul (0.3-0.9); MONOCYTES % 6.6 % (0.0-11.0); NEUTROPHIL # 6.4 10^3/ul (1.6-7.5); NEUTROPHILS % 67.1 % (39.0-77.0); PLATELET COUNT 221 10^3/UL (140-415); RED BLOOD COUNT 5.67 10^6/ul (4.70-6.10); RED CELL DISTRIBUTION WIDTH 13.3 % (11.5-14.5); WHITE BLOOD COUNT 9.6 10^3/ul (4.8-10.8)
[2017-06-30 20:40] LABS: ADD UMIC YES; UR ASCORBIC ACID NEGATIVE (NEGATIVE); UR BILIRUBIN (Dip) NEGATIVE (NEGATIVE); UR BLOOD (Dip) NEGATIVE (NEGATIVE); UR CLARITY CLOUDY (CLEAR); UR COLOR AMBER (YELLOW); UR GLUCOSE (Dip) NEGATIVE (NEGATIVE); UR KETONES (Dip) TRACE mg/dL (NEGATIVE); UR LEUKOCYTE ESTERASE (Dip) NEGATIVE Leu/ul (NEGATIVE); UR MUCUS MANY /HPF (NONE SEEN); UR NITRITE (Dip) NEGATIVE (NEGATIVE); UR RBC 0 /HPF (0-5); UR SPECIFIC GRAVITY (Dip) 1.031 (1.003-1.030); UR SQUAMOUS EPITHELIAL CELL FEW /HPF (FEW); UR TOTAL PROTEIN (Dip) 1+ mg/dl (NEGATIVE); UR UROBILINOGEN (Dip) 2+ mg/dL (NEGATIVE)
[2017-06-30 21:05] LABS: ALANINE AMINOTRANSFERASE 47 IU/L (13-69); ALBUMIN 4.4 g/dl (3.3-4.9); ALBUMIN/GLOBULIN RATIO 1.18; ALKALINE PHOSPHATASE 53 IU/L (42-121); ANION GAP 15 (8-16); ASPARTATE AMINO TRANSFERASE 37 IU/L (15-46); BILIRUBIN,INDIRECT 0.5 mg/dl (0-1.1); BILIRUBIN,TOTAL 0.5 mg/dl (0.2-1.3); BLOOD UREA NITROGEN 18 mg/dl (7-20); CALCIUM 10.7 mg/dl (8.4-10.2); CARBON DIOXIDE 27 mmol/L (21-31); CHLORIDE 107 mmol/L (97-110); CREATININE 0.98 mg/dl (0.61-1.24); GLUCOSE 106 mg/dl (70-220); SODIUM 145 mmol/L (135-144); TOTAL PROTEIN 8.1 g/dl (6.1-8.1)
[2017-06-30 21:25] LABS: TROPONIN-I < 0.012 ng/ml (0.00-0.12)
--- NOTE | 2017-06-30 21:28 | RADRPT ---
PROCEDURE: Right upper quadrant ultrasound. CLINICAL INDICATION: Abdominal pain. TECHNIQUE: Multiple real-time longitudinal and transverse images of the right upper quadrant of th e abdomen were acquired utilizing a curved array transducer. Images were reviewed on a high-resoluti on PACS workstation. COMPARISON: None. FINDINGS: The pancreas is not visualized due to overlying bowel gas. The liver is normal in echogenicity. The liver measures 18.5 cm in length. No hepatic lesion or in trahepatic biliary ductal dilatation is seen. The portal vein is patent with hepatopetal flow. No gallstones or sludge are seen within the gallbladder lumen. The gallbladder wall is not thickene d. There is no pericholecystic fluid. The common bile duct measures 4 mm in diameter, not dilated. The right kidney measures 12.4 cm in length. Renal echogenicity is normal. There is no hydronephro sis, urinary calculus, or renal mass. The visualized portions of the aorta and IVC are unremarkable. IMPRESSION: 1. Normal appearance of the gallbladder and bile ducts. 2. Mild hepatomegaly. 3. The pancreas is not visualized. RPTAT: HTAR .Alejo Sherman MD, MD Date Time Electronically viewed and signed by .Alejo Sherman MD, on 06/30/2017 21:28 .R/
[2017-06-30 21:30] VITALS: TEMP 98
--- NOTE | 2017-06-30 21:42 | RADRPT ---
PROCEDURE: XR Abdomen. CLINICAL INDICATION: Abdomen pain. TECHNIQUE: Two views. AP supine and AP erect. COMPARISON: None. FINDINGS: There is no free air. The bowel gas pattern is normal. There is no evidence of obstruction. Surgical clips are present in the right lower quadrant. There are no abnormal calcifications overlying the urinary tracts. The osseus structures are unremarkable. IMPRESSION: 1. Prior right lower quadrant abdomen surgery. 2. Otherwise unremarkable abdomen radiographs. RPTAT: QQ .Rafael Wolff MD, Date Time Electronically viewed and signed by .Rafael Wolff MD, on 06/30/2017 21:41 .R/
[2017-06-30] MEDS ORDERED: KETOROLAC 15 MG INJ IV STA (22:13)
[2017-06-30] MEDS ORDERED: ACETAMINOPHEN 1000MG/100ML IV 100 ML IVPB ONE (22:30)
[2017-06-30] MEDS ORDERED: POLY17PO6 PO (23:31)
[2017-06-30] MEDS ORDERED: BISA10SU55 RC (23:33)
[2017-06-30 23:50] VITALS: BP 133/80; PULSE 66; RESP 16
[2017-06-30] MEDS ORDERED: TRAM50TA2 PO (23:51)
== END 2017-06-30 23:55 | disposition home or self-care (01) ==
LOC: FTE 19:23
DX: R10.11 Right upper quadrant pain (principal); F17.210 Nicotine dependence, cigarettes, uncomplicated; R11.2 Nausea with vomiting, unspecified
CPT/HCPCS: 36415; 74010; 76705; 80053; 81001; 83690; 84484; 85025; 93005; 96374; 96375; J0131; J1885; J2405; J7120; Z7502; Z7610

== ENCOUNTER 2018-07-31 22:11 | Emergency (ER) | payer BC ==
[~2018-07-31] VITALS: Ht 180.3 cm; Wt 142.8 kg
[~2018-07-31 22:11] MED LIST changes: +BISA10SU55 RC; +POLY17PO6 PO; +TRAM50TA2 PO
[2018-07-31 22:16] VITALS: Ht 180.3 cm; Wt 142.8 kg
[2018-07-31] MEDS: ONDANSETRON 4 MG INJ IV STA (23:55)
[2018-08-01] MEDS: morphine 4 MG/ML VIAL IV STA ×2 (00:34→00:43)
[2018-08-01] MEDS: ONDANSETRON 4 MG INJ IV STA (00:34)
[2018-08-01] MEDS ORDERED: KETOROLAC 30 MG INJ IV ONE (00:47)
[2018-08-01] MEDS ORDERED: toradol ORAL (02:12)
[2018-08-01 02:32] VITALS: BP 150/98; PULSE 81; RESP 16
--- NOTE | 2018-08-17 23:28 | ERD ---
ER Documentation Chief Complaint Chief Complaint mid abd pain x 3 hours; denies n/v/diarrhea HPI Is a 42-year-old male comes in with abdominal pain for 3 hours. Denies nausea vomiting diarrhea. Pain is mild to moderate intensity no exacerbating relieving factors. No fevers no chills. No other current complaints. ROS All systems reviewed and are negative except as per history of present illness. Medications Home Meds Active Scripts [toradol] No Conflict Check, 10 MG ORAL TID PRN for PAIN, #20 Prov:ESTEFANI CAMPOSJosh 08/01/18 Allergies Allergies: Coded Allergies: morphine (Unverified Adverse Reaction, Unknown, DIZZINESS, 08/01/18) PMhx/Soc Medical and Surgical Hx: pt denies Surgical Hx History of Surgery: No Anesthesia Reaction: No Hx Neurological Disorder: No Hx Respiratory Disorders: No Hx Cardiac Disorders: No Hx Psychiatric Problems: No Hx Miscellaneous Medical Probl: Yes (KIDNEY STONES) Hx Alcohol Use: Yes (OOC) Hx Substance Use: No Hx Tobacco Use: Yes Smoking Status: Current some day smoker Physical Exam Physical Exam Const: No acute distress Head: Atraumatic Eyes: Normal Conjunctiva ENT: Normal External Ears, Nose and Mouth. Neck: Full range of motion. No meningismus. Resp: Clear to auscultation bilaterally Cardio: Regular rate and rhythm, no murmurs Abd: Soft, non tender, non distended. Normal bowel sounds Skin: No petechiae or rashes Back: No midline or flank tenderness Ext: No cyanosis, or edema Neur: Awake and alert Psych: Normal Mood and Affect Results 24 hrs Laboratory Tests Test 08/01/18 00:25 White Blood Count 7.7 10^3/ul Red Blood Count 5.38 10^6/ul Hemoglobin 16.0 g/dl Hematocrit 48.1 % Mean Corpuscular Volume 89.4 fl Mean Corpuscular Hemoglobin 29.7 pg Mean Corpuscular Hemoglobin Concent 33.3 g/dl Red Cell Distribution Width 13.2 % Platelet Count 216 10^3/UL Mean Platelet Volume 10.2 fl Immature Granulocytes % 0.400 % Neutrophils % 56.4 % Lymphocytes % 32.0 % Monocytes % 8.0 % Eosinophils % 2.6 % Basophils % 0.6 % Nucleated Red Blood Cells % 0.0 /100WBC Immature Granulocytes # 0.030 10^3/ul Neutrophils # 4.4 10^3/ul Lymphocytes # 2.5 10^3/ul Monocytes # 0.6 10^3/ul Eosinophils # 0.2 10^3/ul Basophils # 0.1 10^3/ul Nucleated Red Blood Cells # 0.0 10^3/ul Urine Color YELLOW Urine Clarity CLEAR Urine pH 5.0 Urine Specific [place] 1.028 Urine Ketones NEGATIVE mg/dL Urine Nitrite NEGATIVE mg/dL Urine Bilirubin NEGATIVE mg/dL Urine Urobilinogen 1+ mg/dL Urine Leukocyte Esterase NEGATIVE [place]/ul Urine Microscopic RBC 6 /HPF Urine Microscopic WBC 1 /HPF Urine Mucus FEW /HPF Urine Hemoglobin 1+ mg/dL Urine Glucose NEGATIVE mg/dL Urine Total Protein NEGATIVE mg/dl Sodium Level 144 mmol/L Potassium Level 4.6 mmol/L Chloride Level 106 mmol/L Carbon Dioxide Level 26 mmol/L Anion Gap 12 Blood Urea Nitrogen 17 mg/dl Creatinine 0.78 mg/dl Est Glomerular Filtrat Rate mL/min > 60 mL/min Glucose Level 92 mg/dl Calcium Level 9.6 mg/dl Total Bilirubin 0.2 mg/dl Direct Bilirubin 0.00 mg/dl Indirect Bilirubin 0.2 mg/dl Aspartate Amino Transf (AST/SGOT) 34 IU/L Alanine Aminotransferase (ALT/SGPT) 39 IU/L Alkaline Phosphatase 56 IU/L Troponin I < 0.012 ng/ml Total Protein 7.7 g/dl Albumin 4.6 g/dl Globulin 3.10 g/dl Albumin/Globulin Ratio 1.48 Lipase 120 U/L Current Medications Medications Dose Sig/Iza Start Time Status Last (Trade) Ordered Route PRN Stop Time Admin Dose Reason Admin Morphine 4 mg ONCE STAT 07/31/18 DC Sulfate IV 23:55 (morphine) 07/31/18 23:56 Ondansetron 4 mg ONCE STAT 07/31/18 DC 07/31/18 HCl (Zofran IV 23:55 23:55 Inj) 07/31/18 23:56 Ketorolac 30 mg ONCE ONCE 08/01/18 DC 08/01/18 Tromethamine IV 00:47 00:54 (Toradol) 08/01/18 00:48 Procedures/MDM EKG: Rate/Rhythm: [Normal Sinus Rhythm] QRS, ST, T-waves: [No changes consistent w/ acute ischemia] Impression: [No evidence of ischemia or arrhythmia] Chest X-ray 1V Interpreted by me: Soft Tissue: No acute abnorm alities Bones: No acute abnormalities Mediastinum/Cardiac Silhouette/Lungs: [No acute abnormalities] Patient's gastrointestinal symptoms have stabilized while in the department. No evidence of severe dehydration, sepsis, or surgical abdomen. Extensive discussion with family and patient that occult disease cannot be ruled out. 8 hour recheck for repeat abdominal exam is planned. Departure Diagnosis: Primary Impression: Flank pain Condition: Stable Patient Instructions: Flank Pain, Uncertain Cause ESTEFANI CAMPOS Aug 17, 2018 23:28
== END 2018-08-01 02:32 | disposition home or self-care (01) ==
LOC: E/R 22:11
DX: R10.9 Unspecified abdominal pain (principal); F17.210 Nicotine dependence, cigarettes, uncomplicated
CPT/HCPCS: 71045; 74176; 80053; 81001; 83690; 84484; 85025; 93005; J1885; J2405; 36415; 96374; 96375; J2270

== ENCOUNTER 2018-11-04 21:51 | Emergency (ER) | payer BC ==
[~2018-11-04] VITALS: Ht 188 cm; Wt 136.5 kg
[~2018-11-04 21:51] MED LIST changes: -ACET1TAB40 PO; -BISA10SU55 RC; -POLY17PO6 PO; -TRAM50TA2 PO; +toradol ORAL
[2018-11-04 21:54] VITALS: Ht 188 cm; Wt 136.5 kg
[2018-11-04] MEDS ORDERED: KETOROLAC 30 MG INJ IV STA (22:59)
--- NOTE | 2018-11-04 22:59 | ERD ---
ER Documentation Chief Complaint Chief Complaint FEVER, SWOLLEN LYMPH NODES ON L SIDE OF NECK X'S 1 DAY HPI 43-year-old male, previously healthy, presents the emergency department, complaining of 1 day with sore throat, fever, T-max 103, associated with a headache and general malaise. The patient denies runny nose, no cough, no upper respiratory symptoms. No medications taken at this time for pain or fever. He denies shortness of breath, no chest pain, no difficulty swallowing. ROS All systems reviewed and are negative except as per history of present illness. Medications Home Meds Active Scripts Acetaminophen* (Tylenol*) 325 Mg Tablet, 2 TAB PO Q6 PRN for PAIN AND OR ELEVATED TEMP, #20 TAB Prov:GERARDO NUÑEZ MD 11/05/18 Ketorolac Tromethamine* (Ketorolac Tromethamine*) 10 Mg Tablet, 10 MG PO Q6H PRN for PAIN, #20 TAB Prov:GERARDO NUÑEZ MD 11/05/18 Amoxicillin/Potassium Clav (Amox-Clav 875-125 mg Tablet) 875-125 mg Tab, 1 TAB PO BID for 10 Days, #20 TAB Prov:GERARDO NUÑEZ MD 11/05/18 [toradol] No Conflict Check, 10 MG ORAL TID PRN for PAIN, #20 Prov:ESTEFANI CAMPOS 08/01/18 Allergies Allergies: Coded Allergies: morphine (Unverified Adverse Reaction, Unknown, DIZZINESS, 08/01/18) PMhx/Soc History of Surgery: No Anesthesia Reaction: No Hx Neurological Disorder: No Hx Respiratory Disorders: No Hx Cardiac Disorders: No Hx Psychiatric Problems: No Hx Miscellaneous Medical Probl: Yes (KIDNEY STONES) Hx Alcohol Use: Yes (OOC) Hx Substance Use: No Hx Tobacco Use: Yes Physical Exam Vitals Vital Signs Date Temp Pulse Resp B/P (MAP) Pulse Ox O2 O2 Flow FiO2 Time Delivery Rate 11/05/18 99.2 87 20 108/57 Room Air 01:12 (74) 11/04/18 103.3 22:20 11/04/18 102.3 110 20 133/81 97 21:54 (98) Physical Exam Patient is in moderate distress due to fever, vital signs showed fever. EYES: PERRLA, EOMI, injected sclerae EARS: Canals clear, erythematous tympanic membranes THROAT: Erythematous oropharynx with bilateral exudates NECK: Supple, + tender cervical lymphadenopathy. Full ROM without pain or tenderness. HEART: RRR, no rubs, murmurs, clicks or gallops. LUNGS: Clear to auscultation. ABDOMEN: Soft, non-tender without masses or hepatosplenomegaly. EXTREMITIES: No edema bilaterally. BACK: Full ROM, no deformity, normal back exam NEURO: Cranial nerves grossly intact, no motor or sensory deficit Result Diagram: 11/04/18231911/04/182319 Results 24 hrs Laboratory Tests Test 11/04/18 23:20 White Blood Count 7.2 10^3/ul Red Blood Count 5.22 10^6/ul Hemoglobin 15.1 g/dl Hematocrit 45.5 % Mean Corpuscular Volume 87.2 fl Mean Corpuscular Hemoglobin 28.9 pg Mean Corpuscular Hemoglobin Concent 33.2 g/dl Red Cell Distribution Width 12.9 % Platelet Count 145 10^3/UL Mean Platelet Volume 11.7 fl Immature Granulocytes % 0.300 % Neutrophils % 67.8 % Lymphocytes % 21.6 % Monocytes % 9.6 % Eosinophils % 0.3 % Basophils % 0.4 % Nucleated Red Blood Cells % 0.0 /100WBC Immature Granulocytes # 0.020 10^3/ul Neutrophils # 4.9 10^3/ul Lymphocytes # 1.6 10^3/ul Monocytes # 0.7 10^3/ul Eosinophils # 0.0 10^3/ul Basophils # 0.0 10^3/ul Nucleated Red Blood Cells # 0.0 10^3/ul Sodium Level 138 mmol/L Potassium Level 4.6 mmol/L Chloride Level 101 mmol/L Carbon Dioxide Level 25 mmol/L Anion Gap 12 Blood Urea Nitrogen 13 mg/dl Creatinine 0.98 mg/dl Est Glomerular Filtrat Rate mL/min > 60 mL/min Glucose Level 96 mg/dl Calcium Level 9.8 mg/dl Current Medications Medications Dose Sig/Iza Start Time Status Last (Trade) Ordered Route PRN Stop Time Admin Dose Reason Admin Sodium 1,000 ml @ Q1H ONCE 11/04/18 DC 11/04/18 Chloride 1,000 mls/hr IV 23:00 11/04/18 23:36 23:59 Ceftriaxone 50 ml @ ONCE ONCE 11/04/18 DC 11/04/18 Sodium 100 mls/hr IVPB 23:00 11/04/18 23:37 23:29 Ketorolac 30 mg ONCE STAT 11/04/18 DC 11/04/18 Tromethamine IV 22:59 11/04/18 23:36 (Toradol) 23:02 650 mg ONCE ONCE 11/04/18 DC 11/04/18 Acetaminophen PO 23:00 11/04/18 23:37 (Tylenol 23:02 Tab) 8 mg ONCE ONCE 11/04/18 DC 11/04/18 Dexamethasone IV 23:00 11/04/18 23:36 (Decadron) 23:02 Procedures/MDM Differential diagnosis include but not limited to: Tonsillar/pharyngeal infection bacterial/viral/fungal, parotitis, allergies, GERD. Less likely peritonsillar abscess, retropharyngeal abscess. No signs of upper respiratory obstruction Physical examination and clinical presentation consistent most likely with acute suppurative tonsillitis. Centor criteria 4/5. During the ED course the patient remained stable. Clinical impression discussed with the patient who agrees with management. The patient is stable to be treated outpatient and will be discharged home with a Rx for antibiotic and ibuprofen. Some side effects of prescribed medications (headache, rash, nausea, vomiting, diarrhea, drowsiness, habituation, bleeding, hypertension, interactions with other medications) were reviewed. The patient was instructed to follow up with the primary care provider in the next 48h. If symptoms persist, worsen or new symptoms develop, then patient should return to the ED immediately. Disclaimer: Inadvertent spelling and grammatical errors are likely due to EHR/dictation software use and do not reflect on the overall quality of patient care. Also, please note that the electronic time recorded on this note does not necessarily reflect the actual time of the patient encounter. Departure Diagnosis: Primary Impression: Acute suppurative tonsillitis Condition: Stable Additional Instructions: Thank you very much for allowing us to participate in your care. Your health and safety is our top priority at [facility]. Call your primary care doctor TOMORROW for an appointment during the next 2-4 days and bring all the information and medications prescribed. Have prescriptions filled and follow precisely the directions on the label. If the symptoms get worse and your provider is unavailable, return to the Emergency Department immediately. GERARDO NUÑEZ MD Nov 04, 2018 22:59
[2018-11-04] MEDS ORDERED: DEXAMETHASONE 10 MG/ML 1 ML INJ IV ONE (23:00)
[2018-11-04] MEDS ORDERED: CEFTRIAXONE 1 GM/50 ML (PMX) 50 ML IVPB ONE (23:00)
[2018-11-04] MEDS ORDERED: SOD CHLORIDE 0.9% 1,000 ML IV ONE (23:00)
[2018-11-04] MEDS ORDERED: ACETAMINOPHEN 325 MG TAB PO ONE (23:00)
[2018-11-05] MEDS ORDERED: AMOX1TAB10 PO (00:49)
[2018-11-05] MEDS ORDERED: ACET325T33 PO (00:49)
[2018-11-05] MEDS ORDERED: KETO10TA PO (00:49)
[2018-11-05 01:12] VITALS: BP 108/57; PULSE 87; RESP 20
== END 2018-11-05 01:14 | disposition home or self-care (01) ==
LOC: FTE 21:51
DX: J03.90 Acute tonsillitis, unspecified (principal); Z87.891 Personal history of nicotine dependence
CPT/HCPCS: 80048; 85025; J0696; J1100; J1885; J7030; Z7610; 36415; 96374; 96375